=== PATIENT | male | born 1940 | race Caucasian/White ===

== ENCOUNTER 2019-07-16 10:18 | Outpatient (RCR) | payer MEDICARE, MEDICAID, SELFPAY ==
--- NOTE | 2019-07-16 14:21 | ST.OPIE ---
Visit Care Team Role Provider Type Cornelius Ha MD Primary Care Provider Non-Staff Specialty: Internal Medicine Address: [address] [place], [address] Email: Daquan Dietz MD Attending Provider Physician Specialty: Ear, Nose, Throat Address: [address] [place] [address], [id number] Email: [email or web address] Speech-Language [email or web address] Initial Evaluation BROACH OPERATOR Clinical Swallow Evaluation Start: 07/16/19 13:37 Freq: Status: Active Protocol: Document 07/16/19 13:39 LNK (Rec: 07/16/19 14:15 LNK [id number]) Clinical Swallow Evaluation Session Time Visit Start Time 11:00 Visit Stop Time 12:15 Total Visit Minutes 75 Visit Information Visit Number 1 Plan of Care Dates 07/16/19- Insurance Information Medicare/Medicaid Referral Referring Physician Daquan Dietz MD, ENT Reason for Referral Swallowing Setting Assessment Location Outpatient Care Visit Type Note Type Initial Evaluation Next Note Type Next Note Type Re-Evaluation Patient Information Identification Type Name,Picture History Mr Cartagena was seen for assessment of swallowing secondary to Pt request for second opinion re: swallowing therapy. Pt brought a MBS recording (DVD) dated 05/26/19 that was recorded at [facility]. The images on the DVD were difficult to view, possible because of incompatibility between the recording and viewing platforms. According to the radiologist's report, the pt demonstrated laryngeal penetration/aspiration across all PO trials. There was no BROACH OPERATOR report. Mr Cartagena was accompanied by his , Gladis. 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 Dr. Dietz examined pt via flexible laryngoscope. He observed a smooth tongue base and epiglottis, pooling of frothy secretions, right >left , normally mobile vocal folds ans some pooling of secretions in the right pyriform sinus Subjective Observations Mr Cartagena and his were pleasant. They arrived on time. Findings Impressions Mr Cartagena's medical history of lingual carcinoma, radical neck dissection, chemo/ radiation therapy to his right neck area presents a complicated picture for treatment of swallowing. The difficulties include: the residual lingual control, the effect of the radiation therapy on the muscles and structures (internal and external) on the neck and larynx/airway protection. The ability of the residual and treated tissues to move in a manner that will allow for improved swallowing. When asked if there was a particular reason for the MBS (e.g., return to PO intake), Mr Cartagena and his were unsure. Upon review of the limited MBS images, there appeared to be reduced hyolaryngeal elevation , no epiglottal inversion, no pharyngeal stripping/bolus control, pooling in the valeculla and pyriform sinuses (to a lesser degree). Penetration into the laryngeal vestibule was observed. However, there did not appear to be aspiration. Residue was observed along the anterior wall of the thyroid lamina; however, there did not appear to be aspiration. A complete video viewing and assessment via the MBSImp protocol could not be done. Mr Cartagena and his were shown a digital demonstration if a normal swallow as well as a swallow with laryngeal penetration. Anatomy and physiology were explained prior to viewing the DVD they brought. They expressed gratitude for the education. Following the demonstration, the DVD images were reviewed with Mr Cartagena and his . Without the BROACH OPERATOR report and given the limitations of the DVD recording, it is difficult to recommend a therapy program. I think therapy may be warranted; however, a repeat MBS at [facility] which will assist in a more appropriate POC for swallowing therapy. The prognosis of therapy unknown at this point. Treatment Plan Therapy Recommendations Recommend obtaining MBS report from [facility] if possible Recommend repeat MBS at [facility] Recommend swallow tx POC dependent upon the results of the MBS and if the pt is interested.
--- NOTE | 2019-08-30 10:36 | ST.IPDYTX ---
Visit Care Team Role Provider Type Cornelius Ha MD Primary Care Provider Non-Staff Specialty: Internal Medicine Address: [address] [place], [address] Email: Daquan Dietz MD Attending Provider Physician Specialty: Ear, Nose, Throat Address: [address] [place] [address], [id number] Email: [email or web address] [email or web address] Dysphagia Treatment Start: 07/16/19 13:37 Freq: Status: Active Protocol: Document 08/30/19 10:34 LNK (Rec: 08/30/19 10:36 LNK [id number]) Dysphagia Treatment Visit Type Note Type Discharge Summary Assessment Assessment of Improvement Pt was seen once for evaluation only. He has not returned to this clinic. He has no further appointments scheduled. Pt will be dicharged at this time. Treatment Plan Appropriate for Continued Therapy No: Discharge
== END 2019-09-08 16:35 ==
LOC: SP 10:18
PROVIDERS: PCP Internal Medicine; Visit Provider Otolaryngology
DX: R13.19 Other dysphagia (principal)
CPT/HCPCS: 92610

== ENCOUNTER → 2019-09-13 10:48 | Outpatient (CLI) | payer MEDICARE, MEDICAID, SELFPAY ==
--- NOTE | 2019-09-13 | DI.RAD.S_ITS ---
PROCEDURE: FL BARIUM SWALLOW W SPEECH INDICATIONS: Malignant neoplasm of mouth, unspecified TECHNIQUE: Examination was conducted in conjunction with speech pathology per standard protocol. In the lateral projection, filming was performed of the patient swallowing. AP projection filming may also be performed with patient swallowing. COMPARISON: None. FINDINGS: Function: There were numerous episodes of penetration during swallow as above thin and pudding consistency substances. There were several episodes of aspiration without resulting cough reflex. Morphology: No cricopharyngeal bar is identified. No cervical esophageal webs. No Zenker's diverticulum. No strictures. IMPRESSION: Very poor swallow, with repeated episodes of penetration and silent aspiration. Comment: Please refer to the speech pathologist's report. Dictated by: Tad Gatica M.D. on 09/13/2019 at 16:39 Approved by: Tad Gatica M.D. on 09/13/2019 at 16:41
--- NOTE | 2019-09-20 17:38 | ST.SWALLOW ---
Visit Care Team Role Provider Type Family Provider Specialty: Address: Phone: Fax: Email: Cornelius Ha MD Attending Provider Non-Staff Primary Care Provider Specialty: Internal Medicine Address: [address] [place] [address], [id number] Email: Modified Barium Swallow Study MARBLE FINISHER Modified Barium Swallow Study Start: 09/20/19 13:11 Freq: Status: Active Protocol: Document 09/13/19 13:11 LNK (Rec: 09/20/19 13:43 LNK [email or web address]) Modified Barium Swallow Study Total Time Visit Start Time 11:30 Visit Stop Time 12:15 Total Visit Minutes 45 Visit Information Plan of Care Dates 09/13/19 Referral Referring Physician Cornelius Ha Reason for Referral Hx dysphagia Patient Information Patient History Mr Cartagena was seen for Modified Barium Swallow Study at the referral of Dr. Cornelius Ha. 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 Mr Cartagena would like to be able to eat again. According to Mr. Cartagena, a MBS dated was recorded at [facility]. The images on the DVD were difficult to view, possibly because of incompatibility between the recording and viewing platforms. According to the radiologist's report at that time, the pt demonstrated laryngeal penetration/ aspiration across all PO trials. Subjective Observations Pt was seated in the fluoroscopy chair. Directions and procedures were described to the pt. He agreed to continue Patient Positioning Position View Lateral Imaging Lateral View Textures Administered Trials Presented Thin Liquid via Spoon,Thin Liquid via Cup,[place] Liquid via Spoon,[place] Liquid via Cup,Honey Liquid via Spoon, Pudding Thick Liquid via Spoon Oral Phase Source: MBSIMP (TM) (C) Bolus Specific Scoring Grid Lip Closure WFL Tongue Control During Bolus Hold Severe Impairment Bolus Transport/Lingual Motion Severe Impairment A/P Lingual Propulsion Delay No: Pre-swallow spillage of bolus to pyriform sinuses Number of Seconds Delayed (seconds) 1-2s Oral Residue Moderate Impairment Residue Clearing Moderate Impairment Nasal Regurgitation No Additional Oral Phase Observations When swallowing the pt consistently raised his chin to assist the tongue (via head back) position in A-P transport. This position increases the risk of aspiration. Control of the bolus within the mouth was minimal. Pharyngeal Phase Source: MBSIMP (TM) (C) Bolus Specific Scoring Grid Delayed Initiation of Pharyngeal Swallow Yes Soft Palate Elevation WFL Tongue Base Strength/Range of Motion Severe Impairment Residue Along the Tongue Base Yes Clearance of Residue Along Tongue Base Severe Impairment Laryngeal Elevation Moderate Impairment Anterior Hyoid Movement Severe Impairment Epiglottic Range of Motion Severe Impairment Vallecular Residue Yes: Consistent across all trials. Residue then entered the airway Clearance of Vallecular Residue Severe Impairment Laryngeal Vestibular Closure Severe Impairment Pharyngeal Stripping Wave Severe Impairment Posterior Pharyngeal Wall Residue Yes: Consistent across trials. Residue would flow to pyriform sinuses Clearance of Posterior Pharyngeal Wall Severe Impairment Residue Residue in the Pyriform Sinuses Yes: Residue would fill P.S. and with subsequent swallows be squeezed into airway Clearance of Residue in the Pyriform Severe Impairment Sinuses Esophageal Clearance Upright Position Moderate Impairment Additional Pharyngeal Phase Observations The posterior aspect of pt's tongue is reduced in size and linguapharyngeal contact is weak. The pt's epiglottis does not invert to protect the airway. There is reduced hyolaryngeal elevation with no forward movement of the hyoid bone. This significantly impacts the epigottic inversion and the seal of the laryngeal vestibule. There is no stripping of the posterior pharyngeal wall, negatively affecting the control of the flow of the bolus. Significant pooling is observed in the valeculla as well as the pyriform sinuses. The pt requires a minimum of 5 attempts to swallow per sip. Each swallow attempt results in laryngeal penetration and/ or aspiration of the bolus as well as the pooled secretions/ residue. Although the pt did not penetrate/aspirate all trials, the penetration/ aspiration was silent. The pt needed to be cued to swallow again and/or to cough. A/P View Clinical Impressions Dysphagia Type severe oropharyngeal dysphagia Findings Although the pt has expressed a desire to eat regular foods he continues to present with severe oropharyngeal dysphagia . He does report having thick soups on a daily basis. He has denied pneumonia. Because of the MBSS results as described above, NPO is still recommended with continued tube feedings. Linguapharyngeal exercises may be beneficial to improve swallowing safety; however the prognosis for exercises alone is poor. It is likely that the pt's surgery to remove the tumor, the neck dissection and the radiation therapy to have permanently altered his oropharyngeal tissues. One therapeutic option that may be beneficial is VitalStim therapy. VitalStim is the use of electrical stimulation to the muscles while performing swallow exercises. VitalStim therapy has not been attempted with this pt. The prognosis for this therapy is unknown at this point. It is recommended that VitaStim therapy be conducted 3x/week. Further, it is expected that this therapeutic program will span several months. Rehabilitation Potential Fair Patient Appropriate for Therapy Yes: VitalStim with certified MARBLE FINISHER @ [facility] Recommendations Diet Liquids Order NPO Diet Order NPO Treatment Plan Therapy Recommendations Outpatient Speech Therapy, Other Recommended Referrals Primary Care Physician,ENT Consult
== END ==
PROVIDERS: PCP Internal Medicine; Visit Provider Internal Medicine
DX: C06.9 Malignant neoplasm of mouth, unspecified (principal); C77.9 Secondary and unspecified malignant neoplasm of lymph node, unspecified; J98.8 Other specified respiratory disorders
CPT/HCPCS: 74230; 92611